=== PATIENT | female | born 1995 | race American Indian/Alaskan Native ===

== ENCOUNTER 2020-08-05 10:33 | Emergency (ER) | payer MEDICAID ==
--- NOTE | 2020-08-05 10:40 | Emergency Department Report ---
Blank Doc - Documentation Documentation: 25-year-old female that presents with n/v and weakness. Stated is about 6 weeks . No vaginal bleeding. This initial assessment/diagnostic orders/clinical plan/treatment(s) is/are subject to change based on patient's health status, clinical progression and re-assessment by fellow clinical providers in the ED. Further treatment and workup at subsequent clinical providers discretion. Patient/guardians urged not to elope from the ED as their condition may be serious if not clinically assessed and managed. Initial orders include: 1- Patient sent to [facility] for further evaluation and treatment 2- labs
[2020-08-05 10:42] VITALS: BP 136/98
[2020-08-05 11:06] LABS: Basophils % (Auto) 0.3 % (0.0-1.8); Hematocrit 41.3 % (30.3-42.9); Hemoglobin 14.2 gm/dl (10.1-14.3); Lymphocytes # (Auto) 1.4 K/mm3 (1.2-5.4); Lymphocytes % (Auto) 11.8 % (13.4-35.0); Mean Corpuscular HGB Conc 34 % (30-34); Mean Corpuscular Volume 95 fl (79-97); Monocytes # (Auto) 0.6 K/mm3 (0.0-0.8); Monocytes % (Auto) 5.3 % (0.0-7.3); Platelet Count 384 K/mm3 (140-440); Red Blood Count 4.34 M/mm3 (3.65-5.03); Red Cell Distribution Width 11.9 % (13.2-15.2)
[2020-08-05 11:27] LABS: Blood Urea Nitrogen 10 mg/dL (7-17); Calcium 10.5 mg/dL (8.4-10.2); Hemolysis Index 4
[2020-08-05 11:28] LABS: BUN/Creatinine Ratio 17
[2020-08-05] MEDS ORDERED: SODIUM CHLORIDE 0.9% 1000 ML 1,000 ML IV ONE (11:28)
[2020-08-05] MEDS ORDERED: ONDANSETRON 4 MG/2 ML INJ IV ONE (11:28)
--- NOTE | 2020-08-05 11:38 | Emergency Department Report ---
Vomiting/Diarrhea - HPI Chief Complaint: Nausea/Vomiting/Diarrhea Stated Complaint: 6 WKS/VOMIT Time Seen by Provider: 08/05/20 10:34 Duration: 2 Days Severity: moderate Nausea/Vomiting Severity: Moderate Diarrhea Severity: None Pain Location: Epigastric Other History: The patient was evaluated in the emergency department for symptoms described in the history of present illness. He/she was evaluated in the context of the global COVID-19 pandemic, which necessitated consideration that the patient might be at risk for infection with the virus that causes COVID-19. Institutional protocols and algorithms that pertain to the evaluation of patients at risk for COVID-19 are in a state of rapid change based on information released by regulatory bodies including the CDC and federal and state organizations. These policies and algorithms were followed during the patient's care in the emergency department. Please note that these policies, procedures and recommendations changed on a rapid basis. 25-year-old - [place] female presents to the emergency room stating that she is 6 weeks and has been having nausea and vomiting for the last 2 days. Patient only reports mild epigastric pain when she vomits. Patient denies any vaginal bleeding pelvic pain or vaginal discharge. Her last menstrual period was June 21, 2020. She is 2 para 1. ED Review of Systems ROS: Stated complaint: 6 WKS/VOMIT Other details as noted in HPI Comment: All other systems reviewed and negative ED Past Medical Hx - Past Medical History Previous Medical History?: Yes Additional medical history: Vaginal delivery - Surgical History Past Surgical History?: No - Social History Smoking Status: Former Smoker Substance Use Type: None - Medications Home Medications: Home Medications Medication Instructions Recorded Confirmed Last Taken Type Doxylamine Succinate/Vit B6 1 each PO QHS PRN #30 tablet.dr 08/05/20 Unknown Rx [Hector Sullivan 10-10 mg Tablet] Maggie Root [Maggie] 250 mg PO QID PRN #30 capsule 08/05/20 Unknown Rx Metoclopramide [Reglan] 10 mg PO TID #12 tab 08/05/20 Unknown Rx Vomiting Diarrhea Exam - Exam General: Vital signs noted. No distress. Alert and acting appropriately. HEENT: Yes Moist Mucous Membranes, No Pharyngeal Erythema, No Pharyngeal Exudates, No Rhinorrhea, No Conjuctival Injection, No Frontal Tenderness, No Maxillary Tenderness Neck: No Adenopathy, No Rigidity Lungs: Yes Clear Lung Sounds, Yes Good Air Exchange, No Wheezes, No Stridor, No Cough, No Nasal Flaring, No Retractions, No Use of Accessory Muscles Abdomen: Tenderness: No, Peritoneal Signs: No, Distention: No, Hyperactive Bowel sounds: No Skin exam: Rash: No, Edema: No, Normal turgor: Yes Neurologic: Alert and oriented, no deficits. Musculoskeletal: Unremarkable. ED Course Vital Signs 08/05/20 10:39 Temperature 97.6 F Pulse Rate 102 H Respiratory 18 Rate Blood Pressure 136/98 O2 Sat by Pulse 98 Oximetry ED Medical Decision Making - Lab Data Result diagrams: 08/05/20 10:44 08/05/20 10:44 - Medical Decision Making 25-year-old -[place] female presents to the emergency room stating that she is 6 weeks and has been having nausea and vomiting for the last 2 days. Patient only reports mild epigastric pain when she vomits. Patient den ies any vaginal bleeding pelvic pain or vaginal discharge. Her last menstrual period was June 21, 2020. She is 2 para 1. IV initiated normal saline IV Zofran. Critical care attestation.: If time is entered above; I have spent that time in minutes in the direct care of this critically ill patient, excluding procedure time. ED Disposition Clinical Impression: Hyperemesis gravidarum Disposition: - TO HOME OR SELFCARE Is pt being admited?: No Does the pt Need Aspirin: No Condition: Stable Instructions: Hyperemesis Gravidarum (ED) Additional Instructions: Labs are stable vital signs are good would like for you to take the antinausea medications as prescribed. Increase your fluid intake advance your diet as tolerated and follow-up with your [facility]SE WORK[facility]. Prescriptions: Doxylamine Succinate/Vit B6 [Hector Sullivan 10-10 mg Tablet] 1 each PO QHS PRN #30 tablet. PRN Reason: Nausea And Vomiting Maggie Root [Maggie] 250 mg PO QID PRN #30 capsule PRN Reason: Nausea And Vomiting Metoclopramide [Reglan] 10 mg PO TID #12 tab Referrals: PRIMARY CARE, [Primary Care Provider] - 3-5 Days [facility] [Provider Group] - 3-5 Days [facility] [Provider Group] - 3-5 Days [facility] [Provider Group] - 3-5 Days Forms: Work/School Release Form(ED)
== END 2020-08-05 13:29 | disposition home or self-care (01) ==
LOC: ED 10:33
DX: O21.0 Mild hyperemesis gravidarum (principal); Z87.891 Personal history of nicotine dependence
CPT/HCPCS: 36415; 80048; 84702; 85025; 96361; 96374; 99283; J2405; J7030

== ENCOUNTER 2020-08-09 10:25 | Observation (INO) | payer MEDICAID ==
[2020-08-09] MEDS: METOCLOPRAMIDE 10 MG/2 ML INJ IV SCH ×3 (12:01→22:41)
[2020-08-09] MEDS: PROMETHAZINE 25 MG RECT SUPP PR SCH ×2 (12:02→17:32)
[2020-08-09] MEDS: D5W/LACTATED RINGERS 1,000 ML IV SCH ×2 (12:02→14:43)
--- NOTE | 2020-08-09 12:55 | History and Physical Report ---
History of Present Illness Date of examination: 08/09/20 Date of admission: 08/09/20 10:25 Chief complaint: Sent from office for hyperemesis gravidarum History of present illness: Pt is a 25 yo at 7wk EGA who presents from [facility] with severe nausea and vomiting for the past several days, no PO intake for greater than 24 hours despite treatment with Diclegis and Reglan. She reports a burning sensation in her chest/epigastric region related to heartburn. She denies cramping or vaginal bleeding. She has a history of hyperemesis gravidarum in a previous . Past History Past Medical History: no pertinent history Social history: no significant social history - Obstetrical History Expected Date of Delivery: 03/28/21 Actual Gestation: 7 Week(s) 0 Day(s) : 2 Para: 1 Hx # Term Pregnancies: 1 Number of Living Children: 1 Medications and Allergies Allergies Allergy/AdvReac Type Severity Reaction Status Date / Time No Known Allergies Allergy Unverified 08/05/20 10:37 Home Medications Medication Instructions Recorded Confirmed Last Taken Type Doxylamine Succinate/Vit B6 1 each PO QHS PRN #30 tablet. 08/05/20 Unknown Rx [Diclegis Dr 10-10 mg Tablet] Maggie Root [Maggie] 250 mg PO QID PRN #30 capsule 08/05/20 Unknown Rx Metoclopramide [Reglan] 10 mg PO TID #12 tab 08/05/20 Unknown Rx Active Meds: Active Medications Famotidine (Pepcid) 20 mg IV BID GRIFFIN Dextrose/Lactated Ringer's (D5lr) 1,000 mls @ 500 mls/hr IV DIRECT GRIFFIN Stop: 08/10/20 12:59 Last Admin: 08/09/20 12:02 Dose: 500 mls/hr Documented by: Dextrose/Lactated Ringer's (D5lr) 1,000 mls @ 150 mls/hr IV DIRECT GRIFFIN Metoclopramide HCl (Reglan) 10 mg IV Q6H [facility] Last Admin: 08/09/20 12:01 Dose: 10 mg Documented by: Multivitamins/Iron/Calcium ( Vitamin) 1 each PO QDAY GRIFFIN Ondansetron HCl (Zofran) 4 mg IV Q6H PRN PRN Reason: N/V unrelieved by Regreyes Promethazine HCl (Phenergan) 25 mg NE Q6H GRIFFIN Last Admin: 08/09/20 12:02 Dose: 25 mg Documented by: Review of Systems All systems: negative Gastrointestinal: nausea, vomiting, heartburn Genitourinary: no vaginal bleeding - Vital Signs Vital signs: Vital Signs Temp Pulse Resp BP Pulse Ox 98.5 F 69 16 142/92 100 08/09/20 12:26 08/09/20 12:26 08/09/20 12:26 08/09/20 12:26 08/09/20 12:26 Temp Pulse Resp BP Pulse Ox 98.5 F 69 16 142/92 100 08/09/20 12:26 08/09/20 12:26 08/09/20 12:26 08/09/20 12:26 08/09/20 12:26 - Physical Exam Lungs: Positive: Normal air movement Results All other labs normal. Assessment and Plan A: 25 yo at 7 weeks EGA Hyperemesis gravidarum with ketonuria P: Admit for IV fluids and antiemetics CMP, CBC, UA, ketones q12hr, TSH, amylase, lipase Dating scan Advance diet as tolerated
[2020-08-09 13:49] LABS: Basophils % (Auto) 0.3 % (0.0-1.8); Eosinophils % (Auto) 0.1 % (0.0-4.3); Lymphocytes # (Auto) 1.5 K/mm3 (1.2-5.4); Mean Corpuscular HGB Conc 37 % (30-34); Mean Corpuscular Volume 91 fl (79-97); Monocytes # (Auto) 0.6 K/mm3 (0.0-0.8); Monocytes % (Auto) 4.8 % (0.0-7.3); Platelet Count 328 K/mm3 (140-440); Red Blood Count 3.64 M/mm3 (3.65-5.03); Red Cell Distribution Width 11.6 % (13.2-15.2)
[2020-08-09 13:55] LABS: Hematocrit 33.2 % (30.3-42.9); Hemoglobin 12.3 gm/dl (10.1-14.3)
[2020-08-09 14:17] LABS: Hepatitis B Surface Antigen Non-Reactive (Negative); Hepatitis C Virus Antibody Non-Reactive (NonReactive)
[2020-08-09] MEDS: FAMOTIDINE 20 MG/2 ML INJ IV SCH ×2 (14:42→21:42)
[2020-08-09] MEDS: ONDANSETRON 4 MG/2 ML INJ IV PRN ×2 (14:42→21:43)
[2020-08-09 14:49] LABS: Blood Urea Nitrogen 7 mg/dL (7-17); Calcium 9.6 mg/dL (8.4-10.2); Hemolysis Index 6
[2020-08-09 14:51] LABS: BUN/Creatinine Ratio 14
[2020-08-09] MEDS ORDERED: POTASSIUM CHLORIDE 10 MEQ 10 MEQ/100 ML BAG IV SCH (15:30)
[2020-08-09] MEDS ORDERED: D5W/LACTATED RINGERS 1,000 ML IV SCH (16:00)
[2020-08-09 16:25] LABS: Bacteria,Urine 1+ /HPF (Negative); Bilirubin,Urine NEG (Negative); Blood,Urine SM (Negative); Color,Urine Yellow (Yellow); Mucus,Urine FEW /HPF; Protein,Urine <15 mg/dL mg/dL (Negative); Urobilinogen,Urine < 2.0 mg/dL (<2.0)
--- NOTE | 2020-08-09 17:15 | Event Note ---
Date: 08/09/20 Late entry. Notified by CHANDAN Euceda of pt's potassium level 2.4 mmol/L. Placed order for potassium repletion and EKG. Notified Dr. Lopez of pt's status.
[2020-08-09] MEDS ORDERED: POTASSIUM CHLORIDE ER 20 MEQ TAB PO NR (18:42)
--- NOTE | 2020-08-09 18:46 | Event Note ---
Date: 08/09/20 Pt not tolerating IV Potassium well due to discomfort during infusion. She has only received part of the first of four bags ordered. Pt requests a trial of the powdered form, as she is not able to swallow pills easily. Powder formulation ordered. Potassium to be rechecked later tonight, along with hemoglobin a1c.
[2020-08-09] MEDS ORDERED: POTASSIUM CHLORIDE 20 MEQ PACKET FEEDTUBE NR (20:00)
[2020-08-10] MEDS ORDERED: POTASSIUM CHLORIDE 20 MEQ PACKET FEEDTUBE ONE (00:42)
[2020-08-10] MEDS: METOCLOPRAMIDE 10 MG/2 ML INJ IV SCH ×4 (04:55→22:20)
[2020-08-10] MEDS ORDERED: POTASSIUM CHLORIDE ER 20 MEQ TAB PO ONE (05:12)
[2020-08-10] MEDS: ONDANSETRON 4 MG/2 ML INJ IV PRN (06:11)
--- NOTE | 2020-08-10 07:32 | Progress Note ---
Assessment and Plan - Patient Problems (1) Hyperemesis gravidarum Current Visit: No Status: Acute Plan to address problem: Potassium replacement Infusion of IV hydrocortisone Supportive therapy Subjective - Subjective Date of service: 08/10/20 Interval history: Patient had difficulty tolerating the potassium. She reported that the IV site was burning and she could not keep down the p.o. potassium. The IV was redone and we will attempt to infuse the potassium again. Objective - Vital Signs Vital Signs: Vital Signs - 12hr 08/09/20 08/10/20 08/10/20 21:15 00:55 04:37 Temperature 98.1 F 97.9 F 98.1 F Pulse Rate 74 80 74 Respiratory 16 16 14 Rate Blood Pressure 109/69 113/79 111/66 O2 Sat by Pulse 100 98 99 Oximetry - Labs Labs: Abnormal Labs 08/09/20 08/09/20 08/09/20 13:27 13:27 22:24 WBC 11.5 H RBC 3.64 L MCH 34 H MCHC 37 H RDW 11.6 L Lymph % (Auto) 13.0 L Seg Neutrophils % 81.8 H Seg Neutrophils # 9.4 H Sodium 131 L Potassium 2.4 L* D 2.9 L* D Chloride 90.7 L Creatinine 0.5 L Glucose 229 H 08/10/20 03:51 WBC RBC MCH MCHC RDW Lymph % (Auto) Seg Neutrophils % Seg Neutrophils # Sodium Potassium 2.7 L* Chloride Creatinine Glucose Laboratory Results - last 24 hr 08/09/20 08/09/20 08/09/20 13:27 13:27 13:27 WBC 11.5 H RBC 3.64 L Hgb 12.3 Hct 33.2 MCV 91 MCH 34 H MCHC 37 H RDW 11.6 L Plt Count 328 Lymph % (Auto) 13.0 L [place] % (Auto) 4.8 Eos % (Auto) 0.1 Baso % (Auto) 0.3 Lymph # (Auto) 1.5 [place] # (Auto) 0.6 Eos # (Auto) 0.0 Baso # (Auto) 0.0 Seg Neutrophils % 81.8 H Seg Neutrophils # 9.4 H Sodium Potassium Chloride Carbon Dioxide Anion Gap BUN Creatinine Estimated GFR BUN/Creatinine Ratio Glucose Hemoglobin A1c Calcium Amylase 102 Lipase 35 TSH 0.297 Urine Color Urine Turbidity Urine pH Ur Specific [place] Urine Protein Urine Glucose (UA) Urine Ketones Urine Blood Urine Nitrite Urine Bilirubin Urine Urobilinogen Ur Leukocyte Esterase Urine WBC (Auto) Urine RBC (Auto) U Epithel Cells (Auto) Urine Bacteria (Auto) Urine Mucus Hepatitis A IgM Ab Hep Bs Antigen Hep B Core IgM Ab Hepatitis C Antibody 08/09/20 08/09/20 08/09/20 13:27 13:27 16:00 WBC RBC Hgb Hct MCV MCH MCHC RDW Plt Count Lymph % (Auto) [place] % (Auto) Eos % (Auto) Baso % (Auto) Lymph # (Auto) [place] # (Auto) Eos # (Auto) Baso # (Auto) Seg Neutrophils % Seg Neutrophils # Sodium 131 L Potassium 2.4 L* D Chloride 90.7 L Carbon Dioxide 28 Anion Gap 15 BUN 7 Creatinine 0.5 L Estimated GFR > 60 BUN/Creatinine Ratio 14 Glucose 229 H Hemoglobin A1c Calcium 9.6 Amylase Lipase TSH Urine Color Yellow Urine Turbidity Clear Urine pH 7.0 Ur Specific [place] 1.009 Urine Protein <15 mg/dl Urine Glucose (UA) 50 Urine Ketones 80 Urine Blood Sm Urine Nitrite Neg Urine Bilirubin Neg Urine Urobilinogen < 2.0 Ur Leukocyte Esterase Tr Urine WBC (Auto) 5.0 Urine RBC (Auto) 10.0 U Epithel Cells (Auto) 3.0 Urine Bacteria (Auto) 1+ Urine Mucus Few Hepatitis A IgM Ab Non-reactive Hep Bs Antigen Non-reactive Hep B Core IgM Ab Non-reactive Hepatitis C Antibody Non-reactive 08/09/20 08/09/20 08/10/20 22:24 22:24 03:51 WBC RBC Hgb Hct MCV MCH MCHC RDW Plt Count Lymph % (Auto) [place] % (Auto) Eos % (Auto) Baso % (Auto) Lymph # (Auto) [place] # (Auto) Eos # (Auto) Baso # (Auto) Seg Neutrophils % Seg Neutrophils # Sodium Potassium 2.9 L* D 2.7 L* Chloride Carbon Dioxide Anion Gap BUN Creatinine Estimated GFR BUN/Creatinine Ratio Glucose Hemoglobin A1c 4.6 Calcium Amylase Lipase TSH Urine Color Urine Turbidity Urine pH Ur Specific [place] Urine Protein Urine Glucose (UA) Urine Ketones Urine Blood Urine Nitrite Urine Bilirubin Urine Urobilinogen Ur Leukocyte Esterase Urine WBC (Auto) Urine RBC (Auto) U Epithel Cells (Auto) Urine Bacteria (Auto) Urine Mucus Hepatitis A IgM Ab Hep Bs Antigen Hep B Core IgM Ab Hepatitis C Antibody
[2020-08-10] MEDS: D5W/LACTATED RINGERS 1,000 ML IV SCH (08:55)
[2020-08-10] MEDS: POTASSIUM CHLORIDE 10 MEQ 10 MEQ/100 ML BAG IV SCH ×2 (08:55→11:11)
[2020-08-10] MEDS: PRENATAL VIT27-FE FUMARATE-FOLIC ACID VIT TAB PO SCH (08:56)
[2020-08-10] MEDS: FAMOTIDINE 20 MG/2 ML INJ IV SCH ×2 (08:56→22:20)
[2020-08-10] MEDS ORDERED: MULTIPLE VITAMIN INJ, ADULT 10 ML in D5W/LACTATED RINGERS 1,000 ML IV ONE (09:00)
--- NOTE | 2020-08-10 11:05 | Ultrasound Report ---
ULTRASOUND OBSTETRIC INDICATION / CLINICAL INFORMATION: Dating/viability. Clinical Gestational Age (GA): 7.0 weeks.days TECHNIQUE: Transabdominal. COMPARISON: None available. FINDINGS: GESTATIONAL SAC: Well-defined oval shape and intrauterine in location. YOLK SAC: No significant abnormality. EMBRYO/FETUS: No significant abnormality. - [place]-Rump Length = 0.9 cm = 7.0 weeks.days - Heart Rate, beats per minute (if present) = 138 ADNEXA: No significant abnormality. FREE FLUID: None. ADDITIONAL FINDINGS: None. IMPRESSION: 1. Single, living intrauterine with estimated sonographic age of 7.0 weeks.days. Signer Name: Hiro Valenzuela MD Signed: 08/10/2020 11:01 AM Workstation Name: [id number]
[2020-08-10] MEDS: HYDROCORTISONE SOD SUCC 100 MG/2 ML VIAL IV SCH ×2 (13:33→22:19)
[2020-08-10] MEDS: POTASSIUM CHLORIDE 20 MEQ PACKET FEEDTUBE SCH (13:33)
[2020-08-10] MEDS: PROMETHAZINE 25 MG RECT SUPP PR SCH ×2 (17:23→23:23)
[2020-08-11] MEDS: METOCLOPRAMIDE 10 MG/2 ML INJ IV SCH ×2 (06:10→10:55)
[2020-08-11] MEDS: HYDROCORTISONE SOD SUCC 100 MG/2 ML VIAL IV SCH (06:11)
--- NOTE | 2020-08-11 09:13 | Progress Note ---
Assessment and Plan A: 25 yo at 7w2d EGA Hyperemesis gravidarum with ketonuria Severe potassium deficiency resolving P: Repeat EKG today Advance diet as tolerated Subjective - Subjective Date of service: 08/11/20 Principal diagnosis: Hyperemesis gravidarum, severe potassium deficiency Interval history: HD2 of admission for hyperemesis gravidarum. Tolerating PO, K remains below 3.0 mmol/L. Patient reports: no new complaints, no vaginal bleeding Objective - Vital Signs Vital Signs: Vital Signs - 12hr 08/11/20 08/11/20 08/11/20 00:25 04:55 08:00 Temperature 98.4 F 98.4 F 98.9 F Pulse Rate 68 76 97 H Respiratory 18 18 16 Rate Blood Pressure 110/61 Blood Pressure 95/56 113/60 [Left] O2 Sat by Pulse 100 99 99 Oximetry - Exam Lungs: Normal air movement Abdomen: Present: soft - Labs Labs: Abnormal Labs 08/09/20 08/09/20 08/09/20 13:27 13:27 22:24 WBC 11.5 H RBC 3.64 L MCH 34 H MCHC 37 H RDW 11.6 L Lymph % (Auto) 13.0 L Seg Neutrophils % 81.8 H Seg Neutrophils # 9.4 H Sodium 131 L Potassium 2.4 L* D 2.9 L* D Chloride 90.7 L Creatinine 0.5 L Glucose 229 H 08/10/20 03:51 WBC RBC MCH MCHC RDW Lymph % (Auto) Seg Neutrophils % Seg Neutrophils # Sodium Potassium 2.7 L* Chloride Creatinine Glucose Laboratory Results - last 24 hr 08/10/20 Unknown Urine Ketones Tr
[2020-08-11] MEDS: PRENATAL VIT27-FE FUMARATE-FOLIC ACID VIT TAB PO SCH (10:55)
[2020-08-11] MEDS: FAMOTIDINE 20 MG/2 ML INJ IV SCH (10:55)
[2020-08-11] MEDS: POTASSIUM CHLORIDE 20 MEQ PACKET FEEDTUBE SCH (10:55)
[2020-08-11] MEDS: PROMETHAZINE 25 MG RECT SUPP PR SCH ×2 (11:00→17:00)
--- NOTE | 2020-08-11 13:46 | Discharge Summary ---
Providers - Providers Date of Admission: 08/09/20 10:25 Date of discharge: 08/11/20 Attending physician: AMYRA ROLLINS 08/09/20 10:29 Consult to Dietitian/Nutrition [CONS] Routine Physician Instructions: Reason For Exam: Reason for Consult: hyper grav Reason for Consult: hyperemesis Primary care physician: SUPERVISOR COREMAKER Hospitalization Reason for admission: IUP - , other (hyperemesis gravidarum) Hospital course: Pt was admitted for hyperemesis gravidarum with ketosis. She was found to have severe hypokalemia with normal EKG. She underwent potassium repletion and received IV fluids and antiemetics. She tolerated PO and met discharge criteria on HD3. She will follow up with [facility] in the coming week. Condition at discharge: Good Disposition: DC-01 TO HOME OR SELFCARE Plan - Discharge Medications Prescriptions: Ondansetron [Zofran ODT TAB] 8 mg PO Q8HR 30 Days #90 tab.rapdis - Provider Discharge Summary Activity: routine Diet: other (bland foods) Instructions: other (Take Zofran every 8 hours. Present to ED if not tolerating fluids for 24 hours.) Additional instructions: [] Smoking cessation referral if applicable(refer to patient education folder for contact #) [] Refer to [facility] Booklet Call your doctor immediately for: * Fever > 100.5 * Heavy vaginal bleeding ( >1 pad per hour) * Severe persistent headache * Shortness of breath * Reddened, hot, painful area to leg or breast * Drainage or odor from incision. * Keep incision clean and dry at all times and follow doctor's instructions regarding bathing/showering - Follow up plan Follow up: BETTY GOOD CNM [Advanced Practice Nurse] - 3 Days (Please call office to schedule appointment.)
[2020-08-11 16:42] VITALS: BP 97/52
== END 2020-08-11 18:00 | disposition home or self-care (01) ==
LOC: 3A 10:25 → OB 10:50
PROVIDERS: ADMIT Obstetrics & Gynecology; ATTEND Obstetrics & Gynecology
DX: O21.0 Mild hyperemesis gravidarum (principal); Z3A.01 Less than 8 weeks gestation of pregnancy; Z79.899 Other long term (current) drug therapy
CPT/HCPCS: 36415; 76801; 80048; 80074; 81001; 82010; 82150; 83036; 83690; 84132; 84443; 85025; 93005; 96361; 96365; 96366; 96367; 96375; 96376; G0378; G0379; J1720; J2405; J2765; J3480; J7121

== ENCOUNTER 2022-02-25 00:06 | Emergency (ER) | payer MEDICAID ==
[2022-02-25 01:15] LABS: Bilirubin,Urine NEG (Negative); Blood,Urine NEG (Negative); Color,Urine Yellow (Yellow); Mucus,Urine 3+ /HPF; Urobilinogen,Urine < 2.0 mg/dL (<2.0)
[2022-02-25 01:27] LABS: HCG Qualitative,Urine Negative (Negative); Protein,Urine >500 mg/dL (Negative)
[2022-02-25] MEDS ORDERED: ONDANSETRON 4 MG ODT TAB PO ONE (07:50)
[2022-02-25 08:13] LABS: Hematocrit 37.3 % (30.3-42.9); Mean Corpuscular HGB Conc 32 % (30-34); Mean Corpuscular Volume 82 fl (79-97); Platelet Count 392 K/mm3 (140-440); Red Blood Count 4.55 M/mm3 (3.65-5.03)
--- NOTE | 2022-02-25 08:20 | Emergency Department Report ---
ED Abdominal Pain HPI - General Chief Complaint: Nausea/Vomiting/Diarrhea Stated Complaint: EMESIS PUI?: No Time Seen by Provider: 02/25/22 07:49 Source: patient Mode of arrival: Ambulatory Limitations: No Limitations - History of Present Illness Initial Comments: Patient is a 26-year-old female comes to the ER today complaining of nausea and vomiting. She states it started last night. Patient states she bought a home test but did not take it. She is here because she thinks she is . She thinks this because of the nausea and vomiting she had with her last pregnancies. She states her last menstrual was 4/3. 3 para 1 2 AB's. Patient denies vaginal bleeding or discharge. She denies dysuria. Denies constipation or diarrhea. Patient has had no active emesis while in [facility]. Severity scale (0 -10): 0 Associated Symptoms: nausea, vomiting - Related Data LMP (females 10-50): other (4 weeks) Previous Rx's Medication Instructions Recorded Last Taken Type Ondansetron [Zofran Odt] 4 mg PO Q8HR PRN #10 tab.rapdis 02/25/22 Unknown Rx Allergies Allergy/AdvReac Type Severity Reaction Status Date / Time No Known Allergies Allergy Unverified 02/25/22 07:48 ED Review of Systems ROS: Stated complaint: EMESIS Other details as noted in HPI Comment: All other systems reviewed and negative ED Past Medical Hx - Past Medical History Previous Medical History?: No Hx HIV: No Additional medical history: Vaginal delivery - Surgical History Past Surgical History?: No - Family History Family history: no significant - Social History Smoking Status: Current Every Day Smoker Substance Use Type: Alcohol - Medications Home Medications: Home Medications Medication Instructions Recorded Confirmed Last Taken Type Ondansetron [Zofran Odt] 4 mg PO Q8HR PRN #10 tab.rapdis 02/25/22 Unknown Rx ED Physical Exam - General Limitations: No Limitations General appearance: alert, in no apparent distress - Head Head exam: Present: atraumatic, normocephalic - Eye Eye exam: Present: normal appearance - ENT ENT exam: Present: mucous membranes moist - Neck Neck exam: Present: normal inspection - Respiratory Respiratory exam: Present: normal lung sounds bilaterally. Absent: respiratory distress - Cardiovascular Cardiovascular Exam: Present: regular rate, normal rhythm. Absent: systolic murmur, diastolic murmur, rubs, gallop - GI/Abdominal GI/Abdominal exam: Present: soft, normal bowel sounds - Extremities Exam Extremities exam: Present: normal inspection - Back Exam Back exam: Present: normal inspection - Neurological Exam Neurological exam: Present: alert, oriented X3 - Psychiatric Psychiatric exam: Present: normal affect, normal mood - Skin Skin exam: Present: warm, dry, intact, normal color. Absent: rash ED Course Vital Signs 02/25/22 02/25/22 02/25/22 00:16 09:49 10:25 Temperature 97.6 F 98.2 F Pulse Rate 67 62 Respiratory 16 16 18 Rate Blood Pressure 152/67 Blood Pressure 118/78 [Right] O2 Sat by Pulse 100 98 99 Oximetry ED Medical Decision Making - Lab Data Result diagrams: 02/25/22 07:59 02/25/22 07:59 - Medical Decision Making Lab Results 02/25/22 02/25/22 02/25/22 Range/Units 07:59 07:59 Unknown WBC 7.1 (4.5-11.0) K/mm3 RBC 4.55 (3.65-5.03) M/mm3 Hgb 12.0 (10.1-14.3) gm/dl Hct 37.3 (30.3-42.9) % MCV 82 (79-97) fl MCH 26 L (28-32) pg MCHC 32 (30-34) % RDW 19.0 H (13.2-15.2) % Plt Count 392 (140-440) K/mm3 Sodium 138 (137-145) mmol/L Potassium 3.5 L (3.6-5.0) mmol/L Chloride 97.0 L (98-107) mmol/L Carbon Dioxide 24 (22-30) mmol/L Anion Gap 21 mmol/L BUN 8 (7-17) mg/dL Creatinine 0.7 (0.6-1.2) mg/dL Estimated GFR > 60 ml/min BUN/Creatinine Ratio 11 % Glucose 113 H (65-100) mg/dL Calcium 10.6 H (8.4-10.2) mg/dL Total Bilirubin 0.50 (0.1-1.2) mg/dL AST 15 (5-40) units/L ALT 12 (7-56) units/L Alkaline Phosphatase 51 (35-129) units/L Total Protein 8.5 H (6.3-8.2) g/dL Albumin 5.8 H (3.9-5) g/dL Albumin/Globulin Ratio 2.1 % Lipase 17 (13-60) units/L Urine Color Yellow (Yellow) Urine Turbidity Slightly-cloudy (Clear) Urine pH 5.0 (5.0-7.0) Ur Specific [place] 1.034 H (1.003-1.030) Urine Protein >500 (Negative) mg/dL Urine Glucose (UA) 50 (Negative) mg/dL Urine Ketones 80 (Negative) mg/dL Urine Blood Neg (Negative) Urine Nitrite Neg (Negative) Urine Bilirubin Neg (Negative) Urine Urobilinogen < 2.0 (<2.0) mg/dL Ur Leukocyte Esterase Neg (Negative) Urine WBC (Auto) 3.0 (0.0-6.0) /HPF Urine RBC (Auto) 17.0 (0.0-6.0) /HPF U Epithel Cells (Auto) 27.0 H (0-13.0) /HPF Urine Mucus 3+ /HPF Urine HCG, Qual Negative (Negative) Vital Signs 02/25/22 02/25/22 02/25/22 00:16 09:49 10:25 Temperature 97.6 F 98.2 F Pulse Rate 67 62 Respiratory 16 16 18 Rate Blood Pressure 152/67 Blood Pressure 118/78 [Right] O2 Sat by Pulse 100 98 99 Oximetry Labs noted. UA noted. Preg negative Vital signs stable No nausea vomiting while in the ER. Granted she was given Zofran. However, on discharge exam she is drinking soda with no difficulty. Significant other remains at bedside Patient being discharged home with discharge plan of care including conservative management. Her abdominal exam is benign some not imaging her. She verbalizes understanding of discharge plan including diet, medications, activity and follow-up. On discharge patient ambulatory in no acute distress Critical care attestation.: If time is entered above; I have spent that time in minutes in the direct care of this critically ill patient, excluding procedure time. ED Disposition Clinical Impression: Nausea & vomiting Qualifiers: Vomiting type: unspecified Qualified Code(s): R11.2 - Nausea with vomiting, unspecified Disposition: 01 HOME / SELF CARE / HOMELESS Is pt being admited?: No Does the pt Need Aspirin: No Condition: Stable Instructions: Nausea and Vomiting, Adult Additional Instructions: Diet as tolerated, advance slowly Stay well-hydrated with water Motrin or Tylenol for pain Zofran for nausea Follow-up with PCP in 48 hours if problem persist. Have given you referral below Prescriptions: Ondansetron [Zofran Odt] 4 mg PO Q8HR PRN #10 tab.rapdis PRN Reason: Vomiting Referrals: APOLINAR PÉREZ MD [Primary Care Provider] - 3-5 Days Time of Disposition: 09:51
[2022-02-25 08:35] LABS: Alanine Aminotransferase 12 units/L (7-56); Albumin 5.8 g/dL (3.9-5); Blood Urea Nitrogen 8 mg/dL (7-17); Calcium 10.6 mg/dL (8.4-10.2); Hemolysis Index 1
[2022-02-25 08:36] LABS: BUN/Creatinine Ratio 11
[2022-02-25] MEDS ORDERED: POTASSIUM CHLORIDE ER 20 MEQ TAB PO ONE (08:55)
[2022-02-25 10:26] VITALS: BP 118/78
== END 2022-02-25 10:25 | disposition home or self-care (01) ==
LOC: ED 00:06
DX: R11.2 Nausea with vomiting, unspecified (principal); F17.200 Nicotine dependence, unspecified, uncomplicated; F10.20 Alcohol dependence, uncomplicated
CPT/HCPCS: 36415; 80053; 81001; 81025; 83690; 85027; 99283; J3490; Q0162